=== PATIENT | male | born 1945 | race Caucasian/White ===

== ENCOUNTER → 2019-10-26 | Outpatient (CLI) | payer MEDICARE | END | disposition home or self-care (01) | LOC: WOUND 13:05 | PROVIDERS: ATTEND Internal Medicine | DX: Z43.2 Encounter for attention to ileostomy (principal); J44.9 Chronic obstructive pulmonary disease, unspecified; Z87.891 Personal history of nicotine dependence; Z88.2 Allergy status to sulfonamides | CPT/HCPCS: G0463 ==

== ENCOUNTER 2019-11-17 16:54 | Inpatient (IN) | payer MEDICARE ==
[~2019-11-17] VITALS: Ht 182.9 cm; Wt 103.4 kg
--- NOTE | 2019-11-17 17:21 | NUR ---
PATIENT PRESENTED TO [facility] TODAY AFTER BECOMING DIZZY AND HAVING SYNCOPAL EPISODE FOR UNKNOWN TIME. PATIENT STATES SOB FOR 3 WEEKS AND SUDDEN CHEST PRESSURE STARTING LAST NIGHT. PATIENT WITH SURGERY FOR COLOSTOMY ON October. PT FOUND TO HAVE SADDLE PE AND WAS NITRATE POSTIVE WITH UTI. PT GIVEN 4000 UNIT BOLUS OF HEPARIN WITH MAINTAINCE DRIP OF 1000 UNITS AN HOUR. GIVEN ROCEFINE 1GM, MAG, 2GM, DIG 0.25, ZOFRAN 4MG, AND 2L OF NS.
[2019-11-17] MEDS ORDERED: LIDOCAINE 1%, 20ML ONE (17:25)
[2019-11-17] MEDS ORDERED: MIDAZOLAM 1 MG/ML, 2ML ONE (17:25)
[2019-11-17] MEDS ORDERED: FENTANYL PF 100 MCG/2ML ONE (17:25)
[2019-11-17] MEDS ORDERED: ALTEPLASE 10 MG in SODIUM CHLORIDE 0.9% 240 ML IV ONE (17:30)
[2019-11-17] MEDS ORDERED: PLEASE ENTER ALLERGIES MC SCH (17:30)
[2019-11-17 17:35] LABS: MEAN CORPUSCULAR HEMOGLOBIN 29.2 pg (27.5-34.5); MEAN CORPUSCULAR HGB CONC 33.7 g/dL (33.2-36.2); MEAN CORPUSCULAR VOLUME 86.7 fL (81-97); MEAN PLATELET VOLUME 8.1 fL (7.4-10.4); PLATELET COUNT 179 x10^3/uL (130-400); RED BLOOD COUNT 4.31 x10^6/uL (4.38-5.82); RED CELL DISTRIBUTION WIDTH 14.1 % (9.4-14.8)
--- NOTE | 2019-11-17 17:45 | NUR ---
Pt to cath laboratory technician for [employer]. Report to cath laboratory technician.
[2019-11-17 17:47] LABS: ANION GAP 8 mmol/L (5-15); CALCIUM 8.3 mg/dL (8.5-10.1); CHLORIDE 102 mmol/L (98-107)
--- NOTE | 2019-11-17 17:56 | NUR ---
REPORT TO RONEL GARCIA IN ICU
[2019-11-17 17:59] LABS: INTERNATIONAL NORMALIZED RATIO 1.06 (0.93-1.1); PROTHROMBIN TIME 11.2 Seconds (9.6-11.5)
[2019-11-17 18:01] LABS: MD YES
[2019-11-17 18:03] LABS: <PLATELET ESTIMATE> ADEQUATE; <PLT MORPHOLOGY> NORMAL PLT MORPH; <RBC MORPHOLOGY> NORMAL; BAND#(MANUAL) 0.24 x10^3/uL; BANDS%(MANUAL) 1 % (0-7); EOS#(MANUAL) 0.24 x10^3/uL (0.0-0.4); EOS% (MANUAL) 1 % (1-7); LYMPH#(MANUAL) 0.48 x10^3/uL (1-3.4); LYMPHS% (MANUAL) 2 % (22-44); MONOS#(MANUAL) 0.96 x10^3/uL (0.3-2.7); MONOS% (MANUAL) 4 % (2-9); SEG#(MANUAL) 22.17 x10^3/uL (1.8-6.8); SEGS% (MANUAL) 92 % (42-75)
[2019-11-17] MEDS ORDERED: SODIUM CHLORIDE 0.9% 1,000 ML IV SCH (18:17)
[2019-11-17] MEDS ORDERED: SODIUM CHLORIDE FLUSH 3ML SYRINGE IVF PRN (18:30)
[2019-11-17] MEDS ORDERED: BISACODYL 10 MG SUPP PR PRN (19:30)
[2019-11-17] MEDS ORDERED: POLYETHYLENE GLYCOL 17 GM PACKET PO PRN (19:30)
[2019-11-17] MEDS ORDERED: DOCUSATE 100 MG CAPSULE PO PRN (19:30)
[2019-11-17] MEDS: SODIUM CHLORIDE 0.9% 1,000 ML IV SCH (22:36)
[2019-11-17] MEDS: APIXABAN 5 MG TABLET PO SCH (22:44)
[2019-11-17 22:48] VITALS: BP 117/92
[2019-11-17 23:29] LABS: CULTURE INDICATED? YES; MICROSCOPIC INDICATED
[2019-11-18 04:03] VITALS: BP 92/61
[2019-11-18 04:40] LABS: MEAN CORPUSCULAR HGB CONC 32.9 g/dL (33.2-36.2); MEAN PLATELET VOLUME 8.1 fL (7.4-10.4); PLATELET COUNT 161 x10^3/uL (130-400); RED BLOOD COUNT 4.03 x10^6/uL (4.38-5.82); RED CELL DISTRIBUTION WIDTH 14.1 % (9.4-14.8)
[2019-11-18 04:47] LABS: MD YES
[2019-11-18 04:48] LABS: ANION GAP 5 mmol/L (5-15); CALCIUM 8.4 mg/dL (8.5-10.1); CHLORIDE 107 mmol/L (98-107); CREATININE 1.22 mg/dL (0.7-1.3)
[2019-11-18 04:52] LABS: TROPONIN I 0.415 ng/mL (0.000-0.045)
[2019-11-18 04:55] LABS: LYMPH#(MANUAL) 2.96 x10^3/uL (1-3.4); LYMPHS% (MANUAL) 19 % (22-44); MONOS#(MANUAL) 0.31 x10^3/uL (0.3-2.7); MONOS% (MANUAL) 2 % (2-9); REACTIVE LYMPHS # (MANUAL) 0.16 x10^3/uL (0-0); REACTIVE LYMPHS % (MANUAL) 1 % (0-0); SEG#(MANUAL) 12.17 x10^3/uL (1.8-6.8); SEGS% (MANUAL) 78 % (42-75)
[2019-11-18 04:56] LABS: <PLATELET ESTIMATE> ADEQUATE; <PLT MORPHOLOGY> NORMAL PLT MORPH; <RBC MORPHOLOGY> NORMAL
[2019-11-18 05:46] LABS: OCCULT BLOOD NEGATIVE (NEGATIVE)
[2019-11-18] MEDS: APIXABAN 5 MG TABLET PO SCH ×2 (08:20→20:36)
[2019-11-18] MEDS: SODIUM CHLORIDE 0.9% 1,000 ML IV SCH (08:20)
[2019-11-18 11:19] LABS: BASOPHILS # (AUTO) 0.04 x10^3/uL (0-0.1); BASOPHILS % (AUTO) 0 % (0-1); EOSINOPHILS # (AUTO) 0.15 x10^3/uL (0-0.4); EOSINOPHILS % (AUTO) 1 % (1-7); LYMPHOCYTES # (AUTO) 1.16 x10^3/uL (1-3.4); LYMPHOCYTES % (AUTO) 8 % (22-44); MD NO; MEAN CORPUSCULAR HGB CONC 32.5 g/dL (33.2-36.2); MEAN CORPUSCULAR VOLUME 89.1 fL (81-97); MEAN PLATELET VOLUME 7.8 fL (7.4-10.4); MONOCYTES # (AUTO) 1.17 x10^3/uL (0.2-0.8); MONOCYTES % (AUTO) 8 % (2-9); NEUTROPHILS # (AUTO) 11.86 x10^3/uL (1.8-6.8); NEUTROPHILS % (AUTO) 83 % (42-75); PLATELET COUNT 167 x10^3/uL (130-400); RED BLOOD COUNT 3.92 x10^6/uL (4.38-5.82); RED CELL DISTRIBUTION WIDTH 14.4 % (9.4-14.8)
[2019-11-18 12:21] LABS: TROPONIN I 0.306 ng/mL (0.000-0.045)
[2019-11-18 20:00] VITALS: BP 111/65
[2019-11-18 21:16] LABS: OCCULT BLOOD NEGATIVE (NEGATIVE)
[2019-11-19 01:42] VITALS: BP 111/65
[2019-11-19 02:00] VITALS: BP 126/77
[2019-11-19] MEDS: ALBUTEROL-IPRATROPIUM MDI INH INH SCH ×4 (06:39→20:36)
[2019-11-19 07:42] LABS: OCCULT BLOOD NEGATIVE (NEGATIVE)
[2019-11-19] MEDS: APIXABAN 5 MG TABLET PO SCH ×2 (08:11→20:37)
[2019-11-19 09:00] VITALS: BP 133/72
[2019-11-19] MEDS: ACETAMINOPHEN 325 MG TABLET PO PRN ×3 (09:57→18:30)
[2019-11-19 15:00] VITALS: BP 117/75
[2019-11-19] MEDS: GUAIFENESIN 200 MG TABLET PO SCH ×2 (15:40→20:36)
[2019-11-19] MEDS: BENZONATATE 100 MG CAPSULE PO SCH ×2 (15:40→20:37)
[2019-11-19 16:38] VITALS: BP 118/73
[2019-11-19] MEDS ORDERED: FINA5TAB4 PO (18:30)
[2019-11-19] MEDS ORDERED: TAMS-11 PO (18:30)
[2019-11-19 18:33] VITALS: BP 132/89
[2019-11-19] MEDS: HYDROcodone/APAP 5/325 TABLET PO PRN (20:37)
[2019-11-20 01:36] VITALS: BP 111/74
[2019-11-20] MEDS: HYDROcodone/APAP 5/325 TABLET PO PRN ×3 (03:11→16:48)
[2019-11-20] MEDS: ALBUTEROL-IPRATROPIUM MDI INH INH SCH ×4 (06:06→21:37)
[2019-11-20] MEDS: GUAIFENESIN 200 MG TABLET PO SCH ×4 (06:06→21:33)
[2019-11-20 06:12] LABS: MEAN CORPUSCULAR HEMOGLOBIN 29.5 pg (27.5-34.5); MEAN CORPUSCULAR HGB CONC 33.2 g/dL (33.2-36.2); MEAN CORPUSCULAR VOLUME 88.8 fL (81-97); MEAN PLATELET VOLUME 8.2 fL (7.4-10.4); PLATELET COUNT 274 x10^3/uL (130-400); RED BLOOD COUNT 3.88 x10^6/uL (4.38-5.82); RED CELL DISTRIBUTION WIDTH 14.2 % (9.4-14.8)
[2019-11-20 06:14] LABS: ANION GAP 7 mmol/L (5-15); CALCIUM 8.4 mg/dL (8.5-10.1); CHLORIDE 103 mmol/L (98-107); CREATININE 0.89 mg/dL (0.7-1.3)
[2019-11-20 06:30] LABS: BASOPHILS # (AUTO) 0.06 x10^3/uL (0-0.1); BASOPHILS % (AUTO) 0 % (0-1); EOSINOPHILS # (AUTO) 0.09 x10^3/uL (0-0.4); EOSINOPHILS % (AUTO) 1 % (1-7); LYMPHOCYTES # (AUTO) 1.16 x10^3/uL (1-3.4); LYMPHOCYTES % (AUTO) 7 % (22-44); MD SCAN; MONOCYTES # (AUTO) 1.61 x10^3/uL (0.2-0.8); MONOCYTES % (AUTO) 9 % (2-9); NEUTROPHILS # (AUTO) 14.14 x10^3/uL (1.8-6.8); NEUTROPHILS % (AUTO) 83 % (42-75)
[2019-11-20] MEDS ORDERED: FUROSEMIDE 20 MG/2 ML IV ONE (07:00)
[2019-11-20 07:10] VITALS: BP 107/73
[2019-11-20] MEDS: LIDODERM REMOVE PATCH NOTE XX SCH (07:30)
[2019-11-20] MEDS ORDERED: morphine SULFATE 10 MG/ML, 1ML IVPush PRN (08:00)
[2019-11-20] MEDS: MEROPENEM 1 GM in SODIUM CHLORIDE 0.9% 100 ML IV SCH ×2 (08:08→16:48)
[2019-11-20] MEDS: BENZONATATE 100 MG CAPSULE PO SCH ×3 (08:09→21:33)
[2019-11-20] MEDS: LIDODERM 5% PATCH TD SCH (08:09)
[2019-11-20] MEDS: APIXABAN 5 MG TABLET PO SCH ×2 (08:09→21:33)
[2019-11-20] MEDS: AZITHROMYCIN 500 MG TABLET PO SCH (08:09)
[2019-11-20 12:41] LABS: MEAN CORPUSCULAR HEMOGLOBIN 29.4 pg (27.5-34.5); MEAN CORPUSCULAR HGB CONC 33.3 g/dL (33.2-36.2); MEAN CORPUSCULAR VOLUME 88.1 fL (81-97); MEAN PLATELET VOLUME 7.9 fL (7.4-10.4); PLATELET COUNT 325 x10^3/uL (130-400); RED BLOOD COUNT 4.08 x10^6/uL (4.38-5.82); RED CELL DISTRIBUTION WIDTH 14.2 % (9.4-14.8)
[2019-11-20 13:16] LABS: MD YES
[2019-11-20 13:17] LABS: BAND#(MANUAL) 0.57 x10^3/uL; BANDS%(MANUAL) 3 % (0-7); LYMPHS% (MANUAL) 11 % (22-44); MONOS#(MANUAL) 0.76 x10^3/uL (0.3-2.7); MONOS% (MANUAL) 4 % (2-9); SEG#(MANUAL) 15.66 x10^3/uL (1.8-6.8); SEGS% (MANUAL) 82 % (42-75)
[2019-11-20 13:18] LABS: <PLATELET ESTIMATE> ADEQUATE; <PLT MORPHOLOGY> NORMAL PLT MORPH; <RBC MORPHOLOGY> NORMAL
[2019-11-20] MEDS: morphine SULFATE 10 MG/ML, 1ML IVPush SCH ×3 (13:36→21:34)
[2019-11-20 13:42] VITALS: BP 111/66
[2019-11-20 20:00] VITALS: BP 95/66
[2019-11-21 01:01] VITALS: BP 105/68
[2019-11-21] MEDS: MEROPENEM 1 GM in SODIUM CHLORIDE 0.9% 100 ML IV SCH ×3 (01:02→17:31)
[2019-11-21] MEDS: morphine SULFATE 10 MG/ML, 1ML IVPush SCH ×6 (01:03→21:24)
[2019-11-21 01:17] VITALS: BP 107/68
[2019-11-21] MEDS: LIDODERM 5% PATCH TD SCH (05:36)
[2019-11-21] MEDS: GUAIFENESIN 200 MG TABLET PO SCH ×4 (05:36→20:27)
[2019-11-21] MEDS: LIDODERM REMOVE PATCH NOTE XX SCH ×3 (05:36→05:49)
[2019-11-21] MEDS: ALBUTEROL-IPRATROPIUM MDI INH INH SCH ×4 (05:36→20:29)
[2019-11-21 06:04] LABS: BASOPHILS # (AUTO) 0.04 x10^3/uL (0-0.1); BASOPHILS % (AUTO) 0 % (0-1); EOSINOPHILS # (AUTO) 0.29 x10^3/uL (0-0.4); EOSINOPHILS % (AUTO) 2 % (1-7); LYMPHOCYTES % (AUTO) 9 % (22-44); MD NO; MEAN CORPUSCULAR HGB CONC 33.1 g/dL (33.2-36.2); MEAN CORPUSCULAR VOLUME 87.7 fL (81-97); MEAN PLATELET VOLUME 8.2 fL (7.4-10.4); MONOCYTES # (AUTO) 1.28 x10^3/uL (0.2-0.8); MONOCYTES % (AUTO) 8 % (2-9); NEUTROPHILS # (AUTO) 12.34 x10^3/uL (1.8-6.8); NEUTROPHILS % (AUTO) 81 % (42-75); PLATELET COUNT 329 x10^3/uL (130-400); RED BLOOD COUNT 3.56 x10^6/uL (4.38-5.82); RED CELL DISTRIBUTION WIDTH 13.9 % (9.4-14.8)
[2019-11-21 06:07] LABS: ANION GAP 6 mmol/L (5-15); CALCIUM 8.5 mg/dL (8.5-10.1); CHLORIDE 102 mmol/L (98-107)
[2019-11-21 07:19] VITALS: BP 112/68
[2019-11-21] MEDS: APIXABAN 5 MG TABLET PO SCH ×2 (08:45→20:26)
[2019-11-21] MEDS: BENZONATATE 100 MG CAPSULE PO SCH ×3 (08:45→20:29)
[2019-11-21] MEDS: HYDROcodone/APAP 5/325 TABLET PO PRN ×2 (08:46→20:27)
[2019-11-21] MEDS: AZITHROMYCIN 500 MG TABLET PO SCH (08:46)
[2019-11-21 11:31] LABS: BASOPHILS # (AUTO) 0.05 x10^3/uL (0-0.1); BASOPHILS % (AUTO) 0 % (0-1); EOSINOPHILS # (AUTO) 0.18 x10^3/uL (0-0.4); EOSINOPHILS % (AUTO) 1 % (1-7); LYMPHOCYTES # (AUTO) 1.33 x10^3/uL (1-3.4); LYMPHOCYTES % (AUTO) 8 % (22-44); MD NO; MEAN CORPUSCULAR HEMOGLOBIN 28.9 pg (27.5-34.5); MEAN CORPUSCULAR HGB CONC 32.7 g/dL (33.2-36.2); MEAN CORPUSCULAR VOLUME 88.2 fL (81-97); MEAN PLATELET VOLUME 7.9 fL (7.4-10.4); MONOCYTES # (AUTO) 1.12 x10^3/uL (0.2-0.8); MONOCYTES % (AUTO) 7 % (2-9); NEUTROPHILS # (AUTO) 13.26 x10^3/uL (1.8-6.8); NEUTROPHILS % (AUTO) 83 % (42-75); PLATELET COUNT 366 x10^3/uL (130-400); RED BLOOD COUNT 3.51 x10^6/uL (4.38-5.82)
[2019-11-21 13:01] VITALS: BP 92/61
[2019-11-21 18:13] LABS: BASOPHILS # (AUTO) 0.06 x10^3/uL (0-0.1); BASOPHILS % (AUTO) 0 % (0-1); EOSINOPHILS # (AUTO) 0.37 x10^3/uL (0-0.4); EOSINOPHILS % (AUTO) 2 % (1-7); LYMPHOCYTES # (AUTO) 2.52 x10^3/uL (1-3.4); LYMPHOCYTES % (AUTO) 14 % (22-44); MD NO; MEAN CORPUSCULAR HEMOGLOBIN 28.8 pg (27.5-34.5); MEAN CORPUSCULAR HGB CONC 33.1 g/dL (33.2-36.2); MEAN CORPUSCULAR VOLUME 87.1 fL (81-97); MEAN PLATELET VOLUME 7.9 fL (7.4-10.4); MONOCYTES # (AUTO) 1.52 x10^3/uL (0.2-0.8); MONOCYTES % (AUTO) 8 % (2-9); NEUTROPHILS # (AUTO) 13.53 x10^3/uL (1.8-6.8); NEUTROPHILS % (AUTO) 75 % (42-75); PLATELET COUNT 457 x10^3/uL (130-400); RED BLOOD COUNT 3.89 x10^6/uL (4.38-5.82); RED CELL DISTRIBUTION WIDTH 14.2 % (9.4-14.8)
[2019-11-21 20:05] VITALS: BP 108/67
[2019-11-21 23:42] LABS: BASOPHILS # (AUTO) 0.08 x10^3/uL (0-0.1); BASOPHILS % (AUTO) 1 % (0-1); EOSINOPHILS # (AUTO) 0.13 x10^3/uL (0-0.4); EOSINOPHILS % (AUTO) 1 % (1-7); LYMPHOCYTES # (AUTO) 1.59 x10^3/uL (1-3.4); LYMPHOCYTES % (AUTO) 11 % (22-44); MD NO; MEAN CORPUSCULAR HGB CONC 33.5 g/dL (33.2-36.2); MEAN CORPUSCULAR VOLUME 86.7 fL (81-97); MEAN PLATELET VOLUME 7.7 fL (7.4-10.4); MONOCYTES # (AUTO) 1.23 x10^3/uL (0.2-0.8); MONOCYTES % (AUTO) 8 % (2-9); NEUTROPHILS # (AUTO) 11.96 x10^3/uL (1.8-6.8); NEUTROPHILS % (AUTO) 80 % (42-75); PLATELET COUNT 391 x10^3/uL (130-400); RED BLOOD COUNT 3.27 x10^6/uL (4.38-5.82)
[2019-11-22] MEDS: MEROPENEM 1 GM in SODIUM CHLORIDE 0.9% 100 ML IV SCH ×3 (00:48→16:29)
[2019-11-22] MEDS: morphine SULFATE 10 MG/ML, 1ML IVPush SCH ×6 (00:48→20:56)
[2019-11-22 02:38] VITALS: BP 110/75
[2019-11-22] MEDS: LIDODERM REMOVE PATCH NOTE XX SCH (05:30)
[2019-11-22 05:53] LABS: MEAN CORPUSCULAR HEMOGLOBIN 29.3 pg (27.5-34.5); MEAN CORPUSCULAR HGB CONC 33.5 g/dL (33.2-36.2); MEAN CORPUSCULAR VOLUME 87.6 fL (81-97); MEAN PLATELET VOLUME 7.4 fL (7.4-10.4); PLATELET COUNT 396 x10^3/uL (130-400); RED BLOOD COUNT 3.23 x10^6/uL (4.38-5.82); RED CELL DISTRIBUTION WIDTH 14.4 % (9.4-14.8)
[2019-11-22 06:05] LABS: ANION GAP 6 mmol/L (5-15); CALCIUM 8.3 mg/dL (8.5-10.1); CHLORIDE 102 mmol/L (98-107); CREATININE 1.07 mg/dL (0.7-1.3)
[2019-11-22] MEDS: GUAIFENESIN 200 MG TABLET PO SCH ×4 (06:08→20:55)
[2019-11-22] MEDS: LIDODERM 5% PATCH TD SCH (06:08)
[2019-11-22] MEDS: ALBUTEROL-IPRATROPIUM MDI INH INH SCH ×4 (06:09→20:56)
[2019-11-22 06:21] LABS: MD YES
[2019-11-22 06:24] LABS: BAND#(MANUAL) 0.14 x10^3/uL; BANDS%(MANUAL) 1 % (0-7); LYMPH#(MANUAL) 2.36 x10^3/uL (1-3.4); LYMPHS% (MANUAL) 17 % (22-44); MONOS% (MANUAL) 5 % (2-9); MYELOCYTES# (MANUAL) 0.14 x10^3/uL (0-0); MYELOCYTES% (MANUAL) 1 % (0-0); SEG#(MANUAL) 10.56 x10^3/uL (1.8-6.8); SEGS% (MANUAL) 76 % (42-75)
[2019-11-22 06:26] LABS: <PLATELET ESTIMATE> ADEQUATE; <PLT MORPHOLOGY> NORMAL PLT MORPH; <RBC MORPHOLOGY> NORMAL
[2019-11-22 07:05] VITALS: BP 115/69
[2019-11-22] MEDS: BENZONATATE 100 MG CAPSULE PO SCH ×3 (08:19→20:56)
[2019-11-22] MEDS: APIXABAN 5 MG TABLET PO SCH ×2 (08:19→20:56)
[2019-11-22] MEDS: AZITHROMYCIN 500 MG TABLET PO SCH (08:19)
[2019-11-22] MEDS: FINASTERIDE 5 MG TABLET PO SCH (08:46)
[2019-11-22] MEDS: TAMSULOSIN 0.4 MG CAP.ER.24H PO SCH (08:46)
[2019-11-22] MEDS: HYDROcodone/APAP 5/325 TABLET PO PRN (11:25)
[2019-11-22 12:48] LABS: MEAN CORPUSCULAR HGB CONC 33.5 g/dL (33.2-36.2); MEAN CORPUSCULAR VOLUME 86.4 fL (81-97); MEAN PLATELET VOLUME 7.9 fL (7.4-10.4); PLATELET COUNT 476 x10^3/uL (130-400); RED BLOOD COUNT 3.63 x10^6/uL (4.38-5.82); RED CELL DISTRIBUTION WIDTH 14.3 % (9.4-14.8)
[2019-11-22 13:14] VITALS: BP 104/67
[2019-11-22 13:27] LABS: BASOPHILS # (AUTO) 0.06 x10^3/uL (0-0.1); BASOPHILS % (AUTO) 0 % (0-1); EOSINOPHILS # (AUTO) 0.21 x10^3/uL (0-0.4); EOSINOPHILS % (AUTO) 1 % (1-7); LYMPHOCYTES # (AUTO) 1.67 x10^3/uL (1-3.4); LYMPHOCYTES % (AUTO) 10 % (22-44); MD SCAN; MONOCYTES # (AUTO) 1.23 x10^3/uL (0.2-0.8); MONOCYTES % (AUTO) 7 % (2-9); NEUTROPHILS % (AUTO) 81 % (42-75)
[2019-11-22 19:13] VITALS: BP 109/71
[2019-11-23] MEDS: MEROPENEM 1 GM in SODIUM CHLORIDE 0.9% 100 ML IV SCH ×3 (00:26→16:56)
[2019-11-23 00:50] VITALS: BP 116/72
[2019-11-23] MEDS: morphine SULFATE 10 MG/ML, 1ML IVPush SCH ×2 (01:05→05:33)
[2019-11-23] MEDS: LIDODERM REMOVE PATCH NOTE XX SCH (05:30)
[2019-11-23] MEDS: GUAIFENESIN 200 MG TABLET PO SCH ×4 (05:33→20:15)
[2019-11-23] MEDS: LIDODERM 5% PATCH TD SCH (05:35)
[2019-11-23] MEDS: ALBUTEROL-IPRATROPIUM MDI INH INH SCH ×4 (05:36→21:30)
[2019-11-23 06:05] LABS: CHLORIDE 102 mmol/L (98-107)
[2019-11-23 06:10] LABS: ANION GAP 6 mmol/L (5-15); CALCIUM 8.6 mg/dL (8.5-10.1); CREATININE 0.88 mg/dL (0.7-1.3)
[2019-11-23 06:23] LABS: MEAN CORPUSCULAR HEMOGLOBIN 28.7 pg (27.5-34.5); MEAN CORPUSCULAR VOLUME 87.1 fL (81-97); MEAN PLATELET VOLUME 7.4 fL (7.4-10.4); PLATELET COUNT 444 x10^3/uL (130-400); RED BLOOD COUNT 3.24 x10^6/uL (4.38-5.82); RED CELL DISTRIBUTION WIDTH 13.9 % (9.4-14.8)
[2019-11-23 06:44] VITALS: BP 110/72
[2019-11-23 07:09] LABS: BASOPHILS # (AUTO) 0.06 x10^3/uL (0-0.1); BASOPHILS % (AUTO) 1 % (0-1); EOSINOPHILS # (AUTO) 0.16 x10^3/uL (0-0.4); EOSINOPHILS % (AUTO) 1 % (1-7); LYMPHOCYTES # (AUTO) 1.58 x10^3/uL (1-3.4); LYMPHOCYTES % (AUTO) 13 % (22-44); MD SCAN; MONOCYTES # (AUTO) 1.09 x10^3/uL (0.2-0.8); MONOCYTES % (AUTO) 9 % (2-9); NEUTROPHILS # (AUTO) 9.59 x10^3/uL (1.8-6.8); NEUTROPHILS % (AUTO) 77 % (42-75)
[2019-11-23] MEDS ORDERED: MORPHINE SULFATE 4 MG/ML, 1ML IVPush PRN (09:00)
[2019-11-23] MEDS: FINASTERIDE 5 MG TABLET PO SCH (10:02)
[2019-11-23] MEDS: APIXABAN 5 MG TABLET PO SCH ×2 (10:02→20:14)
[2019-11-23] MEDS: TAMSULOSIN 0.4 MG CAP.ER.24H PO SCH (10:02)
[2019-11-23] MEDS: BENZONATATE 100 MG CAPSULE PO SCH ×3 (10:02→20:14)
[2019-11-23] MEDS: AZITHROMYCIN 500 MG TABLET PO SCH (10:02)
[2019-11-23 12:02] VITALS: BP 110/73
[2019-11-23] MEDS: HYDROcodone/APAP 5/325 TABLET PO PRN ×2 (15:02→20:14)
[2019-11-23 19:08] VITALS: BP 110/81
[2019-11-24 01:07] VITALS: BP 108/73
[2019-11-24] MEDS: MEROPENEM 1 GM in SODIUM CHLORIDE 0.9% 100 ML IV SCH ×3 (01:13→16:54)
[2019-11-24] MEDS: LIDODERM REMOVE PATCH NOTE XX SCH (05:30)
[2019-11-24] MEDS: HYDROcodone/APAP 5/325 TABLET PO PRN ×3 (05:55→20:25)
[2019-11-24] MEDS: GUAIFENESIN 200 MG TABLET PO SCH ×4 (05:55→20:21)
[2019-11-24] MEDS: ALBUTEROL-IPRATROPIUM MDI INH INH SCH ×4 (05:56→20:22)
[2019-11-24 07:06] VITALS: BP 115/65
[2019-11-24 07:07] LABS: ANION GAP 8 mmol/L (5-15); CALCIUM 8.5 mg/dL (8.5-10.1); CHLORIDE 101 mmol/L (98-107)
[2019-11-24 07:08] LABS: BASOPHILS # (AUTO) 0.03 x10^3/uL (0-0.1); BASOPHILS % (AUTO) 0 % (0-1); CREATININE 0.83 mg/dL (0.7-1.3); EOSINOPHILS # (AUTO) 0.25 x10^3/uL (0-0.4); EOSINOPHILS % (AUTO) 2 % (1-7); LYMPHOCYTES # (AUTO) 1.42 x10^3/uL (1-3.4); LYMPHOCYTES % (AUTO) 11 % (22-44); MD NO; MEAN CORPUSCULAR HEMOGLOBIN 28.6 pg (27.5-34.5); MEAN CORPUSCULAR HGB CONC 33.3 g/dL (33.2-36.2); MEAN CORPUSCULAR VOLUME 85.9 fL (81-97); MEAN PLATELET VOLUME 7.8 fL (7.4-10.4); MONOCYTES # (AUTO) 1.17 x10^3/uL (0.2-0.8); MONOCYTES % (AUTO) 9 % (2-9); NEUTROPHILS # (AUTO) 9.76 x10^3/uL (1.8-6.8); NEUTROPHILS % (AUTO) 77 % (42-75); PLATELET COUNT 479 x10^3/uL (130-400); RED BLOOD COUNT 3.05 x10^6/uL (4.38-5.82); RED CELL DISTRIBUTION WIDTH 14.1 % (9.4-14.8)
[2019-11-24] MEDS: APIXABAN 5 MG TABLET PO SCH ×2 (08:35→20:22)
[2019-11-24] MEDS: BENZONATATE 100 MG CAPSULE PO SCH ×3 (08:35→20:21)
[2019-11-24] MEDS: AZITHROMYCIN 500 MG TABLET PO SCH (08:35)
[2019-11-24] MEDS: TAMSULOSIN 0.4 MG CAP.ER.24H PO SCH (08:35)
[2019-11-24] MEDS: FINASTERIDE 5 MG TABLET PO SCH (08:35)
[2019-11-24 12:57] VITALS: BP 103/60
[2019-11-24] MEDS: LIDODERM 5% PATCH TD SCH (16:56)
[2019-11-24 19:37] VITALS: BP 122/71
[2019-11-25 01:08] VITALS: BP 128/67
[2019-11-25] MEDS: MEROPENEM 1 GM in SODIUM CHLORIDE 0.9% 100 ML IV SCH ×2 (01:19→09:38)
[2019-11-25] MEDS: GUAIFENESIN 200 MG TABLET PO SCH ×3 (05:41→15:35)
[2019-11-25] MEDS: HYDROcodone/APAP 5/325 TABLET PO PRN ×2 (05:44→15:35)
[2019-11-25] MEDS: LIDODERM REMOVE PATCH NOTE XX SCH (05:45)
[2019-11-25] MEDS: ALBUTEROL-IPRATROPIUM MDI INH INH SCH ×3 (05:45→15:36)
[2019-11-25 06:20] LABS: MEAN CORPUSCULAR HEMOGLOBIN 28.8 pg (27.5-34.5); MEAN CORPUSCULAR HGB CONC 33.4 g/dL (33.2-36.2); MEAN CORPUSCULAR VOLUME 86.4 fL (81-97); MEAN PLATELET VOLUME 7.3 fL (7.4-10.4); PLATELET COUNT 533 x10^3/uL (130-400); RED BLOOD COUNT 3.03 x10^6/uL (4.38-5.82); RED CELL DISTRIBUTION WIDTH 13.9 % (9.4-14.8)
[2019-11-25 06:53] LABS: BASOPHILS # (AUTO) 0.04 x10^3/uL (0-0.1); BASOPHILS % (AUTO) 0 % (0-1); EOSINOPHILS # (AUTO) 0.28 x10^3/uL (0-0.4); EOSINOPHILS % (AUTO) 2 % (1-7); LYMPHOCYTES # (AUTO) 1.74 x10^3/uL (1-3.4); LYMPHOCYTES % (AUTO) 13 % (22-44); MD SCAN; MONOCYTES # (AUTO) 1.07 x10^3/uL (0.2-0.8); MONOCYTES % (AUTO) 8 % (2-9); NEUTROPHILS # (AUTO) 10.25 x10^3/uL (1.8-6.8); NEUTROPHILS % (AUTO) 77 % (42-75)
[2019-11-25 07:48] VITALS: BP 94/60
[2019-11-25] MEDS: TAMSULOSIN 0.4 MG CAP.ER.24H PO SCH (09:38)
[2019-11-25] MEDS: APIXABAN 5 MG TABLET PO SCH (09:39)
[2019-11-25] MEDS: FINASTERIDE 5 MG TABLET PO SCH (09:39)
[2019-11-25] MEDS: BENZONATATE 100 MG CAPSULE PO SCH ×2 (09:39→15:35)
[2019-11-25] MEDS: AZITHROMYCIN 500 MG TABLET PO SCH (09:39)
[2019-11-25] MEDS ORDERED: Albuterol-Ipratropium Mdi INH (11:41)
[2019-11-25] MEDS ORDERED: ACET325T26 PO (11:41)
[2019-11-25] MEDS ORDERED: APIX5TAB PO ×2 (11:41)
[2019-11-25] MEDS ORDERED: MERO1VIA15 IV ×2 (11:46)
[2019-11-25] MEDS ORDERED: AZIT500T10 PO ×2 (11:46)
[2019-11-25 12:18] VITALS: BP 108/67
== END 2019-11-25 16:52 | DRG 175 ==
LOC: ED 17:02 → EDIP 18:17 → ICU 18:29 → 4EST 11-19 16:26
PROVIDERS: ADMIT Internal Medicine Cardiovascular Disease; ATTEND Family Medicine
PROC: 4A023N6 Measurement of Cardiac Sampling and Pressure, Right Heart, Percutaneous Approach (ICD-10-PCS; principal; 2019-11-17)
PROC: 3E06317 Introduction of Other Thrombolytic into Central Artery, Percutaneous Approach (ICD-10-PCS; 2019-11-17)
PROC: 6A751Z7 Ultrasound Therapy of Other Vessels, Multiple (ICD-10-PCS; 2019-11-17)
DX: I26.92 Saddle embolus of pulmonary artery without acute cor pulmonale (principal); J96.90 Respiratory failure, unspecified, unspecified whether with hypoxia or hypercapnia; N17.0 Acute kidney failure with tubular necrosis; I21.A1 Myocardial infarction type 2; J18.9 Pneumonia, unspecified organism; J96.01 Acute respiratory failure with hypoxia; E87.1 Hypo-osmolality and hyponatremia; D62 Acute posthemorrhagic anemia; E87.2 Acidosis; I50.32 Chronic diastolic (congestive) heart failure; N39.0 Urinary tract infection, site not specified; D63.8 Anemia in other chronic diseases classified elsewhere; D72.810 Lymphocytopenia; D72.828 Other elevated white blood cell count; E87.5 Hyperkalemia; I07.1 Rheumatic tricuspid insufficiency; I11.0 Hypertensive heart disease with heart failure; I27.20 Pulmonary hypertension, unspecified; I45.10 Unspecified right bundle-branch block; N28.1 Cyst of kidney, acquired; N40.0 Benign prostatic hyperplasia without lower urinary tract symptoms; Y95 Nosocomial condition; Z66 Do not resuscitate; Z79.01 Long term (current) use of anticoagulants; Z82.3 Family history of stroke; Z87.891 Personal history of nicotine dependence; Z93.3 Colostomy status; Z86.711 Personal history of pulmonary embolism; W18.39XA Other fall on same level, initial encounter; Y93.89 Activity, other specified; Y92.89 Other specified places as the place of occurrence of the external cause; Y99.8 Other external cause status; R00.0 Tachycardia, unspecified; R91.1 Solitary pulmonary nodule; Z20.828 Contact with and (suspected) exposure to other viral communicable diseases
CPT/HCPCS: 36415; 37211; 71045; 74176; 80048; 81001; 82272; 82533; 83615; 83735; 84100; 84132; 84145; 84443; 84484; 85014; 85018; 85025; 85379; 85384; 85520; 85610; 86140; 87040; 87077; 87081; 87086; 87186; 93005; 93306; 99156; 99157; 99291; C1769; C1894; G0378; J2185; J2250; J3010; J1940; J2270; J7030; U0001

== ENCOUNTER 2019-11-27 19:49 | Inpatient (IN) | payer MEDICARE ==
[~2019-11-27] VITALS: Ht 182.9 cm; Wt 94.6 kg
[~2019-11-27 19:49] MED LIST: ACET325T26 PO; APIX5TAB PO; AZIT500T10 PO; Albuterol-Ipratropium Mdi INH; FINA5TAB4 PO; MERO1VIA15 IV; TAMS-11 PO
[2019-11-27] MEDS ORDERED: LIDOCAINE 2%,20 ML JEL.PF.APP MM ONE (20:08)
[2019-11-27] MEDS ORDERED: OMEP-110 PO (20:26)
[2019-11-27] MEDS ORDERED: HYDR-3240 PO (20:26)
[2019-11-27] MEDS ORDERED: BENZ100C PO (20:26)
[2019-11-27] MEDS ORDERED: GUAI-103 PO (20:26)
[2019-11-27 21:00] LABS: ALBUMIN 2.5 g/dL (3.4-5.0); ANION GAP 8 mmol/L (5-15); CALCIUM 8.9 mg/dL (8.5-10.1); CHLORIDE 97 mmol/L (98-107); CREATININE 1.46 mg/dL (0.7-1.3)
[2019-11-27 21:03] LABS: MEAN CORPUSCULAR HEMOGLOBIN 28.2 pg (27.5-34.5); MEAN CORPUSCULAR HGB CONC 33.1 g/dL (33.2-36.2); MEAN CORPUSCULAR VOLUME 85.2 fL (81-97); MEAN PLATELET VOLUME 7.8 fL (7.4-10.4); PLATELET COUNT 760 x10^3/uL (130-400); RED BLOOD COUNT 3.46 x10^6/uL (4.38-5.82); TROPONIN I < 0.015 ng/mL (0.000-0.045)
[2019-11-27 21:33] LABS: BASOPHILS # (AUTO) 0.09 x10^3/uL (0-0.1); BASOPHILS % (AUTO) 1 % (0-1); EOSINOPHILS # (AUTO) 0.11 x10^3/uL (0-0.4); EOSINOPHILS % (AUTO) 1 % (1-7); LYMPHOCYTES # (AUTO) 2.06 x10^3/uL (1-3.4); LYMPHOCYTES % (AUTO) 11 % (22-44); MD SCAN; MONOCYTES # (AUTO) 1.03 x10^3/uL (0.2-0.8); MONOCYTES % (AUTO) 5 % (2-9); NEUTROPHILS # (AUTO) 15.81 x10^3/uL (1.8-6.8); NEUTROPHILS % (AUTO) 83 % (42-75)
--- NOTE | 2019-11-27 22:37 | NUR ---
THREE-WAY INDWELLING BARRERA PLACED BY TASK RN. BECKY BLOOD DRAINING INTO DRAINAGE BAG. NOTIFIED, OK TO HOLD OFF ON URINE SAMPLE AT THIS TIME.
--- NOTE | 2019-11-27 23:07 | NUR ---
PT RESTING COMFORTABLY ON GURNEY. NADN. PT TO GO TO OR TO FIND SOURCE OF BLEEDING.
--- NOTE | 2019-11-27 23:11 | NUR ---
hand folderKristyn Villar assisted with triage and EKG
--- NOTE | 2019-11-27 23:16 | NUR ---
REPORT GIVEN TO STEVEN IN OR.
--- NOTE | 2019-11-27 23:25 | NUR ---
HOSPITALIST AT BEDSIDE.
[2019-11-28] MEDS ORDERED: FENTANYL PF 250 MCG/5ML ONE
[2019-11-28] MEDS ORDERED: ONDANSETRON 2MG/ML, 2ML ONE
[2019-11-28] MEDS ORDERED: ACETAMINOPHEN 325 MG TABLET PO PRN
[2019-11-28] MEDS ORDERED: PROPOFOL 10 MG/ML, 20ML ONE
[2019-11-28] MEDS ORDERED: ROCURONIUM 10MG/ML,5ML ONE
[2019-11-28] MEDS ORDERED: ONDANSETRON 2MG/ML, 2ML IVPush PRN
[2019-11-28] MEDS ORDERED: PROPOFOL 10 MG/ML, 50ML ONE
[2019-11-28] MEDS ORDERED: CEFAZOLIN 1,000 MG ONE
[2019-11-28] MEDS ORDERED: SUCCINYLCHOLINE 20 MG/ML, 10ML ONE
[2019-11-28] MEDS ORDERED: ONDANSETRON ODT 8 MG PO PRN (00:30)
[2019-11-28] MEDS ORDERED: EPHEDRINE 50 MG/ML, 1ML IVPush PRN (00:30)
[2019-11-28] MEDS ORDERED: PROMETHAZINE 25 MG/ML, 1ML IV PRN (00:30)
[2019-11-28] MEDS ORDERED: OXYcodone 5 MG/5 ML ORAL.SOL UDC PO PRN (00:30)
[2019-11-28] MEDS ORDERED: ONDANSETRON 2MG/ML, 2ML IV PRN (00:30)
[2019-11-28] MEDS ORDERED: MIDAZOLAM 1 MG/ML, 2ML IV PRN (00:30)
[2019-11-28] MEDS ORDERED: METOPROLOL 1 MG/ML, 5ML IV PRN (00:30)
[2019-11-28] MEDS ORDERED: EPHEDRINE 50 MG/ML, 1ML IM PRN (00:30)
[2019-11-28] MEDS ORDERED: FENTANYL PF 100 MCG/2ML IV PRN (00:30)
[2019-11-28] MEDS ORDERED: DIAZEPAM 5 MG/ML, 2ML IVPush PRN (00:30)
[2019-11-28] MEDS ORDERED: MORPHINE SULFATE 4 MG/ML, 1ML IVPush PRN (00:30)
[2019-11-28] MEDS ORDERED: MORPHINE SULFATE 4 MG/ML, 1ML ONE (01:15)
[2019-11-28] MEDS: MEROPENEM 1 GM in SODIUM CHLORIDE 0.9% 100 ML IV SCH ×3 (02:07→18:16)
[2019-11-28] MEDS: morphine SULFATE 10 MG/ML, 1ML IVPush PRN ×2 (02:20→08:11)
[2019-11-28 02:33] VITALS: BP 106/69
[2019-11-28 05:03] LABS: MEAN CORPUSCULAR HEMOGLOBIN 28.2 pg (27.5-34.5); MEAN CORPUSCULAR HGB CONC 33.1 g/dL (33.2-36.2); MEAN CORPUSCULAR VOLUME 85.2 fL (81-97); MEAN PLATELET VOLUME 7.4 fL (7.4-10.4); PLATELET COUNT 697 x10^3/uL (130-400); RED BLOOD COUNT 3.19 x10^6/uL (4.38-5.82); RED CELL DISTRIBUTION WIDTH 14.3 % (9.4-14.8)
[2019-11-28 05:12] LABS: ANION GAP 8 mmol/L (5-15); CALCIUM 8.6 mg/dL (8.5-10.1); CHLORIDE 101 mmol/L (98-107)
[2019-11-28 05:15] LABS: TROPONIN I < 0.015 ng/mL (0.000-0.045)
[2019-11-28 05:45] LABS: MD YES
[2019-11-28 05:46] LABS: <PLATELET ESTIMATE> INCREASED; BASOS#(MANUAL) 0.25 x10^3/uL (0-0.1); BASOS% (MANUAL) 1 % (0-1); LYMPH#(MANUAL) 1.23 x10^3/uL (1-3.4); LYMPHS% (MANUAL) 5 % (22-44); MONOS#(MANUAL) 1.96 x10^3/uL (0.3-2.7); MONOS% (MANUAL) 8 % (2-9); MYELOCYTES# (MANUAL) 0.25 x10^3/uL (0-0); MYELOCYTES% (MANUAL) 1 % (0-0); REACTIVE LYMPHS # (MANUAL) 0.49 x10^3/uL (0-0); REACTIVE LYMPHS % (MANUAL) 2 % (0-0); SEG#(MANUAL) 20.34 x10^3/uL (1.8-6.8); SEGS% (MANUAL) 83 % (42-75)
[2019-11-28 05:47] LABS: ANISOCYTOSIS 1+; POLYCHROMASIA 1+
[2019-11-28 08:15] VITALS: BP 132/62
[2019-11-28] MEDS: APIXABAN 5 MG TABLET PO SCH ×2 (09:58→21:55)
[2019-11-28 11:35] VITALS: BP 109/57
[2019-11-28 21:57] VITALS: BP 110/72
[2019-11-29 00:38] VITALS: BP 101/67
[2019-11-29] MEDS: MEROPENEM 1 GM in SODIUM CHLORIDE 0.9% 100 ML IV SCH ×3 (02:32→18:36)
[2019-11-29 06:27] LABS: MEAN CORPUSCULAR HEMOGLOBIN 28.7 pg (27.5-34.5); MEAN CORPUSCULAR HGB CONC 33.5 g/dL (33.2-36.2); MEAN CORPUSCULAR VOLUME 85.6 fL (81-97); MEAN PLATELET VOLUME 7.4 fL (7.4-10.4); PLATELET COUNT 594 x10^3/uL (130-400); RED BLOOD COUNT 2.72 x10^6/uL (4.38-5.82); RED CELL DISTRIBUTION WIDTH 13.8 % (9.4-14.8)
[2019-11-29 06:45] LABS: MD YES
[2019-11-29 06:46] LABS: ANISOCYTOSIS 1+; LYMPH#(MANUAL) 1.93 x10^3/uL (1-3.4); LYMPHS% (MANUAL) 14 % (22-44); MONOS#(MANUAL) 1.66 x10^3/uL (0.3-2.7); MONOS% (MANUAL) 12 % (2-9); MYELOCYTES# (MANUAL) 0.14 x10^3/uL (0-0); MYELOCYTES% (MANUAL) 1 % (0-0); SEG#(MANUAL) 10.07 x10^3/uL (1.8-6.8); SEGS% (MANUAL) 73 % (42-75)
[2019-11-29 06:47] LABS: <PLATELET ESTIMATE> INCREASED; LARGE PLATELETS 1+; POLYCHROMASIA 1+
[2019-11-29 07:00] VITALS: BP 124/87
[2019-11-29] MEDS: APIXABAN 5 MG TABLET PO SCH ×2 (09:51→21:09)
[2019-11-29 11:29] LABS: ALBUMIN 2.2 g/dL (3.4-5.0)
[2019-11-29 11:33] LABS: BILIRUBIN, DIRECT 0.2 mg/dL (0.1-0.2); BILIRUBIN,INDIRECT 0.7 mg/dL (0.0-2.0); BILIRUBIN,TOTAL 0.9 mg/dL (0.2-1.0)
[2019-11-29 12:18] LABS: ANION GAP 6 mmol/L (5-15); CALCIUM 8.1 mg/dL (8.5-10.1); CHLORIDE 100 mmol/L (98-107); CREATININE 1.08 mg/dL (0.7-1.3)
[2019-11-29] MEDS: CALCIUM CARBONATE 500 MG TAB.CHEW PO PRN ×2 (13:36→17:00)
[2019-11-29 13:44] VITALS: BP 104/66
[2019-11-29] MEDS ORDERED: HYDROcodone/APAP 5/325 TABLET PO PRN (17:00)
[2019-11-29 20:07] VITALS: BP 106/68
[2019-11-29] MEDS: OXYBUTYNIN CHLORIDE 5 MG TABLET PO PRN (21:09)
[2019-11-30 00:15] VITALS: BP 103/70
[2019-11-30] MEDS: CALCIUM CARBONATE 500 MG TAB.CHEW PO PRN ×6 (00:23→21:23)
[2019-11-30] MEDS: MEROPENEM 1 GM in SODIUM CHLORIDE 0.9% 100 ML IV SCH ×3 (02:43→18:14)
[2019-11-30 05:31] LABS: BASOPHILS # (AUTO) 0.08 x10^3/uL (0-0.1); BASOPHILS % (AUTO) 1 % (0-1); EOSINOPHILS # (AUTO) 0.27 x10^3/uL (0-0.4); EOSINOPHILS % (AUTO) 2 % (1-7); LYMPHOCYTES # (AUTO) 2.28 x10^3/uL (1-3.4); LYMPHOCYTES % (AUTO) 18 % (22-44); MD NO; MEAN CORPUSCULAR HEMOGLOBIN 28.2 pg (27.5-34.5); MEAN CORPUSCULAR VOLUME 85.6 fL (81-97); MEAN PLATELET VOLUME 7.4 fL (7.4-10.4); MONOCYTES # (AUTO) 0.97 x10^3/uL (0.2-0.8); MONOCYTES % (AUTO) 8 % (2-9); NEUTROPHILS # (AUTO) 9.23 x10^3/uL (1.8-6.8); NEUTROPHILS % (AUTO) 72 % (42-75); PLATELET COUNT 646 x10^3/uL (130-400); RED BLOOD COUNT 2.98 x10^6/uL (4.38-5.82); RED CELL DISTRIBUTION WIDTH 13.9 % (9.4-14.8)
[2019-11-30 05:42] LABS: ALBUMIN 2.4 g/dL (3.4-5.0); ANION GAP 6 mmol/L (5-15); CALCIUM 8.8 mg/dL (8.5-10.1); CHLORIDE 97 mmol/L (98-107)
[2019-11-30 05:47] LABS: ALANINE AMINOTRANSFERASE 50 U/L (12-78); ALKALINE PHOSPHATASE 271 U/L (45-117); BILIRUBIN,TOTAL 0.8 mg/dL (0.2-1.0); CREATININE 1.01 mg/dL (0.7-1.3); TOTAL PROTEIN 7.7 g/dL (6.4-8.2)
[2019-11-30 07:55] VITALS: BP 102/63
[2019-11-30] MEDS: TAMSULOSIN 0.4 MG CAP.ER.24H PO SCH (08:24)
[2019-11-30] MEDS: APIXABAN 5 MG TABLET PO SCH ×2 (08:24→21:20)
[2019-11-30] MEDS: FINASTERIDE 5 MG TABLET PO SCH (08:24)
[2019-11-30] MEDS: OXYBUTYNIN CHLORIDE 5 MG TABLET PO PRN (08:35)
[2019-11-30 14:05] VITALS: BP 120/71
[2019-11-30 20:05] VITALS: BP 109/69
[2019-12-01 02:38] VITALS: BP 98/66
[2019-12-01] MEDS: MEROPENEM 1 GM in SODIUM CHLORIDE 0.9% 100 ML IV SCH ×3 (02:41→18:17)
[2019-12-01 05:34] LABS: BASOPHILS # (AUTO) 0.09 x10^3/uL (0-0.1); BASOPHILS % (AUTO) 1 % (0-1); EOSINOPHILS # (AUTO) 0.26 x10^3/uL (0-0.4); EOSINOPHILS % (AUTO) 2 % (1-7); LYMPHOCYTES # (AUTO) 2.16 x10^3/uL (1-3.4); LYMPHOCYTES % (AUTO) 17 % (22-44); MD NO; MEAN CORPUSCULAR HEMOGLOBIN 28.7 pg (27.5-34.5); MEAN CORPUSCULAR HGB CONC 33.7 g/dL (33.2-36.2); MEAN CORPUSCULAR VOLUME 85.4 fL (81-97); MEAN PLATELET VOLUME 7.3 fL (7.4-10.4); MONOCYTES # (AUTO) 1.13 x10^3/uL (0.2-0.8); MONOCYTES % (AUTO) 9 % (2-9); NEUTROPHILS # (AUTO) 9.08 x10^3/uL (1.8-6.8); NEUTROPHILS % (AUTO) 72 % (42-75); PLATELET COUNT 587 x10^3/uL (130-400); RED BLOOD COUNT 2.97 x10^6/uL (4.38-5.82); RED CELL DISTRIBUTION WIDTH 14.2 % (9.4-14.8)
[2019-12-01 05:39] LABS: ANION GAP 7 mmol/L (5-15); CALCIUM 8.8 mg/dL (8.5-10.1); CHLORIDE 97 mmol/L (98-107); CREATININE 0.97 mg/dL (0.7-1.3)
[2019-12-01 07:53] VITALS: BP 98/65
[2019-12-01] MEDS: TAMSULOSIN 0.4 MG CAP.ER.24H PO SCH (08:54)
[2019-12-01] MEDS: APIXABAN 5 MG TABLET PO SCH ×2 (08:54→20:32)
[2019-12-01] MEDS: FINASTERIDE 5 MG TABLET PO SCH (08:54)
[2019-12-01] MEDS: CALCIUM CARBONATE 500 MG TAB.CHEW PO PRN ×4 (08:54→20:42)
[2019-12-01 13:44] VITALS: BP 111/73
[2019-12-01 20:40] VITALS: BP 108/72
[2019-12-02 01:58] VITALS: BP 116/69
[2019-12-02] MEDS: CALCIUM CARBONATE 500 MG TAB.CHEW PO PRN ×4 (02:21→18:15)
[2019-12-02] MEDS: MEROPENEM 1 GM in SODIUM CHLORIDE 0.9% 100 ML IV SCH ×3 (02:21→18:08)
[2019-12-02 05:04] LABS: MEAN CORPUSCULAR HEMOGLOBIN 28.3 pg (27.5-34.5); MEAN CORPUSCULAR HGB CONC 32.9 g/dL (33.2-36.2); MEAN CORPUSCULAR VOLUME 85.8 fL (81-97); MEAN PLATELET VOLUME 7.5 fL (7.4-10.4); PLATELET COUNT 610 x10^3/uL (130-400); RED BLOOD COUNT 2.95 x10^6/uL (4.38-5.82); RED CELL DISTRIBUTION WIDTH 14.1 % (9.4-14.8)
[2019-12-02 05:16] LABS: ANION GAP 9 mmol/L (5-15); CALCIUM 8.8 mg/dL (8.5-10.1); CHLORIDE 97 mmol/L (98-107)
[2019-12-02 05:17] LABS: CREATININE 1.09 mg/dL (0.7-1.3)
[2019-12-02 05:35] LABS: BASOPHILS # (AUTO) 0.09 x10^3/uL (0-0.1); BASOPHILS % (AUTO) 1 % (0-1); EOSINOPHILS # (AUTO) 0.18 x10^3/uL (0-0.4); EOSINOPHILS % (AUTO) 2 % (1-7); LYMPHOCYTES # (AUTO) 2.14 x10^3/uL (1-3.4); LYMPHOCYTES % (AUTO) 17 % (22-44); MD SCAN; MONOCYTES % (AUTO) 8 % (2-9); NEUTROPHILS # (AUTO) 8.94 x10^3/uL (1.8-6.8); NEUTROPHILS % (AUTO) 72 % (42-75)
[2019-12-02] MEDS: TAMSULOSIN 0.4 MG CAP.ER.24H PO SCH (08:15)
[2019-12-02] MEDS: APIXABAN 5 MG TABLET PO SCH ×2 (08:15→22:15)
[2019-12-02] MEDS: FINASTERIDE 5 MG TABLET PO SCH (08:15)
[2019-12-02 09:18] VITALS: BP 118/78
[2019-12-02 14:27] VITALS: BP 99/67
[2019-12-02 19:12] VITALS: BP 108/69
[2019-12-03] MEDS: CALCIUM CARBONATE 500 MG TAB.CHEW PO PRN ×4 (00:21→15:39)
[2019-12-03 00:37] VITALS: BP 96/63
[2019-12-03] MEDS: MEROPENEM 1 GM in SODIUM CHLORIDE 0.9% 100 ML IV SCH ×2 (04:13→10:32)
[2019-12-03 07:40] VITALS: BP 91/59
[2019-12-03] MEDS: TAMSULOSIN 0.4 MG CAP.ER.24H PO SCH (08:50)
[2019-12-03] MEDS: FINASTERIDE 5 MG TABLET PO SCH (08:50)
[2019-12-03] MEDS: APIXABAN 5 MG TABLET PO SCH (08:52)
[2019-12-03] MEDS ORDERED: TRAM50TA2 PO (10:51)
[2019-12-03] MEDS ORDERED: APIX5TAB PO (10:51)
[2019-12-03] MEDS ORDERED: CALC200T24 PO (10:51)
[2019-12-03 13:45] VITALS: BP 97/65
== END 2019-12-03 17:47 | DRG 698 ==
LOC: ED 20:03 → EDIP 23:15 → ICU 11-28 01:48 → 5SO 11-28 18:27
PROVIDERS: ATTEND Internal Medicine
PROC: 0TCD8ZZ Extirpation of Matter from Urethra, Via Natural or Artificial Opening Endoscopic (ICD-10-PCS; 2019-11-27)
PROC: 0TCB8ZZ Extirpation of Matter from Bladder, Via Natural or Artificial Opening Endoscopic (ICD-10-PCS; principal; 2019-11-27 23:45)
DX: T83.031A Leakage of indwelling urethral catheter, initial encounter (principal); N17.0 Acute kidney failure with tubular necrosis; I27.82 Chronic pulmonary embolism; D68.9 Coagulation defect, unspecified; N17.9 Acute kidney failure, unspecified; E87.1 Hypo-osmolality and hyponatremia; I47.1 Supraventricular tachycardia; I50.32 Chronic diastolic (congestive) heart failure; N35.912 Unspecified bulbous urethral stricture, male; R33.8 Other retention of urine; Z79.01 Long term (current) use of anticoagulants; R31.0 Gross hematuria; D63.8 Anemia in other chronic diseases classified elsewhere; D72.828 Other elevated white blood cell count; I11.0 Hypertensive heart disease with heart failure; I27.20 Pulmonary hypertension, unspecified; Z03.818 Encounter for observation for suspected exposure to other biological agents ruled out; Z82.3 Family history of stroke; N40.1 Benign prostatic hyperplasia with lower urinary tract symptoms; Z87.891 Personal history of nicotine dependence; Z90.49 Acquired absence of other specified parts of digestive tract; Z93.3 Colostomy status; N36.8 Other specified disorders of urethra; N36.5 Urethral false passage; Y73.8 Miscellaneous gastroenterology and urology devices associated with adverse incidents, not elsewhere classified; Y92.89 Other specified places as the place of occurrence of the external cause
CPT/HCPCS: 36415; 71045; 80048; 80053; 80076; 82040; 84484; 85025; 86705; 86706; 86803; 87081; 87340; 87806; 93005; 93308; 93321; 93325; G0378; J0690; J2185; J2405; J2704; J3010; G0475; J0330; J2270; U0001